=== PATIENT | male | born 1985 | race Caucasian/White ===

== ENCOUNTER → 2020-10-01 | Outpatient (CLI) | payer MEDICAID, SELFPAY | END | disposition home or self-care (01) | LOC: LABSPEC 12:29 | PROVIDERS: Visit Provider Physician Assistant | DX: L08.9 Local infection of the skin and subcutaneous tissue, unspecified (principal); C44.1192 Basal cell carcinoma of skin of left lower eyelid, including canthus; L72.0 Epidermal cyst; L71.8 Other rosacea | CPT/HCPCS: 87070; 87205 ==